=== PATIENT | female | born 1950 | race Caucasian/White ===

== ENCOUNTER 2024-04-09 06:12 | Day surgery (SDC) | payer MEDICARE ==
[2024-04-09] VITALS (12 sets, daily range): BP systolic 129–173; BP diastolic 56–87; PULSE 72–96; RESP 14–16; TEMP 97.3–98.1
[~2024-04-09] VITALS: Ht 165.1 cm; Wt 68.5 kg
[2024-04-09] MEDS ORDERED: UPTRAVI PO (07:52)
[2024-04-09] MEDS ORDERED: CAPT12.55 PO (07:52)
[2024-04-09] MEDS ORDERED: FERS325 PO (07:52)
[2024-04-09] MEDS ORDERED: SILD20TA14 PO (07:52)
[2024-04-09] MEDS ORDERED: FOLI0.8T22 PO ×2 (07:52)
[2024-04-09] MEDS ORDERED: MACI10TA PO (07:52)
[2024-04-09] MEDS ORDERED: LEVO50CA4 PO (07:54)
[2024-04-09] MEDS ORDERED: AZEL137S11 NS (07:54)
[2024-04-09] MEDS ORDERED: OMEP40CA21 PO (07:54)
[2024-04-09] MEDS: 0.9%NACL 1000ML 1,000 ML IV ONE (08:05)
[2024-04-09] MEDS ORDERED: proPOFol 10 MG/ML 20ML VIAL IV ONE ×2 (10:56→11:07)
[2024-04-09] MEDS ORDERED: LIDOCAINE HCL 1% 20 ML VIAL ONE (10:57)
== END 2024-04-09 12:25 | disposition home or self-care (01) ==
LOC: DAH 06:12 → ENDO 06:12
PROVIDERS: ATTEND Internal Medicine Gastroenterology
DX: K31.811 Angiodysplasia of stomach and duodenum with bleeding (principal); D50.0 Iron deficiency anemia secondary to blood loss (chronic); K29.50 Unspecified chronic gastritis without bleeding; K57.30 Diverticulosis of large intestine without perforation or abscess without bleeding; M34.9 Systemic sclerosis, unspecified; J84.112 Idiopathic pulmonary fibrosis; D80.0 Hereditary hypogammaglobulinemia; K44.9 Diaphragmatic hernia without obstruction or gangrene; R13.10 Dysphagia, unspecified; Z88.5 Allergy status to narcotic agent; Z88.8 Allergy status to other drugs, medicaments and biological substances; Z85.828 Personal history of other malignant neoplasm of skin; Z90.710 Acquired absence of both cervix and uterus; Z90.89 Acquired absence of other organs; Z79.899 Other long term (current) drug therapy
CPT/HCPCS: 43255; J7030 ×2; J2704 ×2; A4620; A4215; A4223; A7002; A4222; A4221; A4663; A4606; J3490

== ENCOUNTER 2024-05-21 06:57 | Day surgery (SDC) | payer MEDICARE ==
[~2024-05-21] VITALS: Ht 165.1 cm; Wt 68.0 kg
[2024-05-21] VITALS (10 sets, daily range): BP systolic 144–167; BP diastolic 64–163; PULSE 69–88; RESP 14–18; TEMP 97–97.8
[~2024-05-21 06:57] MED LIST: AZEL137S11 NS; CAPT12.55 PO; FERS325 PO; FOLI0.8T22 PO; LEVO50CA5 PO; MACI10TA PO; OMEP40CA21 PO; SILD20TA14 PO; UPTRAVI PO
[2024-05-21] MEDS ORDERED: CYAN50009 PO (08:33)
[2024-05-21] MEDS ORDERED: BIOTIN PO (08:33)
[2024-05-21] MEDS ORDERED: CHOL2000 PO (08:33)
[2024-05-21] MEDS ORDERED: ASCO100031 PO (08:33)
[2024-05-21] MEDS ORDERED: FOLI0.8C PO (08:33)
[2024-05-21] MEDS ORDERED: UPTRAVI PO (08:33)
[2024-05-21] MEDS: 0.9%NACL 1000ML 1,000 ML IV ONE (09:06)
[2024-05-21] MEDS ORDERED: proPOFol 10 MG/ML 20ML VIAL IV ONE ×2 (09:08→09:17)
[2024-05-21] MEDS ORDERED: LIDOCAINE HCL 400MG/20ML VIAL ONE (09:08)
--- NOTE | 2024-05-21 10:41 | NUR ---
Full and complete discharge instructions given to Patient and Family both verbally and in writing. Explained GI procedure precautions and follow up. All questions answered. PIV removed with catheter tip intact. Home with Family W/C to POV.
== END 2024-05-21 10:44 | disposition home or self-care (01) ==
LOC: DAH 06:57 → ENDO 06:57
PROVIDERS: ATTEND Internal Medicine Gastroenterology
DX: K31.819 Angiodysplasia of stomach and duodenum without bleeding (principal); D50.0 Iron deficiency anemia secondary to blood loss (chronic); K29.50 Unspecified chronic gastritis without bleeding; K21.9 Gastro-esophageal reflux disease without esophagitis; K55.20 Angiodysplasia of colon without hemorrhage; K57.30 Diverticulosis of large intestine without perforation or abscess without bleeding; M34.9 Systemic sclerosis, unspecified; J84.112 Idiopathic pulmonary fibrosis; Z88.5 Allergy status to narcotic agent; Z88.8 Allergy status to other drugs, medicaments and biological substances; Z85.828 Personal history of other malignant neoplasm of skin; Z90.710 Acquired absence of both cervix and uterus; Z90.89 Acquired absence of other organs; Z79.899 Other long term (current) drug therapy
CPT/HCPCS: 43239; 43270; J3490; J7030; J2704 ×2; A4620; A4215 ×2; A4223; A4222; A4221; A4663; 43255